=== PATIENT | male | born 1975 | race Caucasian/White ===

== ENCOUNTER 2018-01-30 18:29 | Emergency (ER) | payer BC ==
[~2018-01-30] VITALS: Ht 177.8 cm; Wt 106.6 kg
[2018-01-30 19:08] VITALS: BP 170/93
[2018-01-30] MEDS ORDERED: DICY20TA3 PO (19:54)
--- NOTE | 2018-01-30 19:54 | PHYS DOC ---
Past Medical History Past Medical History: IBS Past Surgical History: Other Additional Past Surgical Histo: RIGHT EAR Additional Information: 0.75 PPD Alcohol Use: None Drug Use: None Adult General Chief Complaint Chief Complaint: MEDICATION REFILL HPI HPI Patient is a 42 year old male who presents to the emergency Department today with a request for medication refill. Patient states he has a history of irritable bowel syndrome and he takes 2 tablets of Bentyl 20 mg 3 times a day for relief of his pain. Patient states that he recently moved to this area and is unable to get into his new physician until the beginning of February. He denies any nausea, vomiting, diarrhea, or pain at this time. He denies any fever , shortness of breath, cough, or any other complaints. Patient states he is here strictly for a medication refill. Review of Systems Review of Systems Constitutional: Denies fever or chills [] GI: Denies abdominal pain, nausea, vomiting, bloody stools or diarrhea [] Integument: Denies rash or skin lesions [] Neurologic: Denies headache, focal weakness or sensory changes [] All other systems were reviewed and found to be within normal limits, except as documented in this note. Allergies Allergies Allergies Coded Allergies Type Severity Reaction Last Updated Verified No Known Drug Allergies 01/30/18 No Physical Exam Physical Exam Constitutional: Well developed, well nourished, no acute distress, non-toxic appearance. [] HENT: Normocephalic, atraumatic, bilateral external ears normal, oropharynx moist, no oral exudates, nose normal. [] Eyes: PERRLA, conjunctiva normal, no discharge. [] Neck: Normal range of motion, no tenderness, supple, no stridor. [] Cardiovascular:Heart rate regular rhythm, no murmur [] Lungs & Thorax: Bilateral breath sounds clear to auscultation [] Skin: Warm, dry, no erythema, no rash. [] Neurologic: Alert and oriented X 3, normal motor function, normal sensory function, no focal deficits noted. [] Psychologic: Affect normal, judgement normal, mood normal. [] Current Patient Data Vital Signs Vital Signs Date Time Temp Pulse Resp B/P (MAP) Pulse Ox O2 Delivery O2 Flow Rate FiO2 01/30/18 19:08 98.0 98 18 170/93 (118) 98 Room Air 98.0 EKG EKG [] Radiology/Procedures Radiology/Procedures [] Course & Med Decision Making Course & Med Decision Making Pertinent Labs and Imaging studies reviewed. (See chart for details) dx: Medication refill Prescription for Bentyl 20 mg tablets 2 tablets by mouth 3 times a day when necessary abdominal pain. Patient instructed to follow-up with his new primary care provider at the beginning of next month as scheduled. Return to the ER for symptoms worsen. [] Dragon Disclaimer Dragon Disclaimer This electronic medical record was generated, in whole or in part, using a voice recognition dictation system. Departure Departure Impression: Primary Impression: Medication refill Disposition: HOME, SELF-CARE Condition: STABLE Referrals: UNKNOWN PCP NAME (PCP) Patient Instructions: Medication Refill, Emergency Department Additional Instructions: Fill the prescription and use it as directed. Follow-up with your new primary care provider as planned. Return to the emergency room if her symptoms worsen. Scripts Dicyclomine Hcl (DICYCLOMINE HCL) 20 Mg Tablet 2 TAB PO TID PRN for PAIN for 30 Days, #180 TAB 0 Refills Prov: BRANDAN STRICKLAND LOOM DOFFER 01/30/18 BRANDAN STRICKLAND LOOM DOFFER Jan 30, 2018 19:54
== END 2018-01-30 19:56 | disposition home or self-care (01) ==
LOC: ER 18:29
DX: K58.9 Irritable bowel syndrome, unspecified (principal); F17.200 Nicotine dependence, unspecified, uncomplicated; Z76.0 Encounter for issue of repeat prescription
CPT/HCPCS: 99283